=== PATIENT | male | born 1970 | race Caucasian/White ===

== ENCOUNTER 2019-09-10 05:53 | Observation (INO) ==
--- NOTE | 2019-09-08 10:10 | EKG Report ---
Test Performed on : 09/08/2019 10:04:37 AM Test Reason : pat Blood Pressure : / mmHG Vent. Rate : 081 BPM Atrial Rate : 081 BPM P-R Int : 156 ms QRS Dur : 092 ms QT Int : 374 ms P-R-T Axes : 062 066 038 degrees QTc Int : 434 ms Normal sinus rhythm. Normal ECG No previous ECGs available Unconfirmed Result
[2019-09-08 10:18] LABS: HEMATOCRIT 43.8 % (42.0-52.0); HEMOGLOBIN 14.6 g/dL (14.0-18.0); MCH 29.4 PG (27-31); MCHC 33.3 g/dL (33-37); MCV 88.3 FL (81-99); MPV 9.3 FL (7.4-10.4); RBC 4.96 XMIL (4.7-6.1); RDW 13.1 % (11.5-14.5); WBC 7.41 X1000 (4.8-10.8)
[2019-09-08 10:39] LABS: AGAP 15; BUN 8 mg/dL (8-22); CALCIUM 9.9 mg/dL (8.8-10.2); CHLORIDE 100 mmol/L (98-107); COSMO 284; CREATININE 0.9 mg/dL (0.7-1.2); ESTIMATED GFR > 60; GLUCOSE 119 mg/dL (70-104); POTASSIUM 3.6 mmol/L (3.5-5.1); SODIUM 143 mmol/L (136-145); TCO2 28 mmol/L (25-35)
[2019-09-10] MEDS ORDERED: REGLAN ONE (06:16)
[2019-09-10] MEDS ORDERED: PEPCID ONE (06:16)
[2019-09-10] MEDS ORDERED: LR 1,000 ML ONE ×2 (06:17→08:54)
[2019-09-10] MEDS ORDERED: DIPRIVAN 1% ONE (06:54)
[2019-09-10] MEDS ORDERED: SUFENTA ONE (06:58)
[2019-09-10] MEDS ORDERED: NAROPIN 0.2% ONE (07:02)
[2019-09-10] MEDS ORDERED: AFRIN NASAL SPRAY ONE (07:02)
[2019-09-10] MEDS ORDERED: XYLOCAINE 1%/EPI 1:100,000 ONE (07:02)
[2019-09-10] MEDS ORDERED: ZOFRAN ONE (07:09)
[2019-09-10] MEDS ORDERED: ROBINUL ONE (07:57)
[2019-09-10] MEDS ORDERED: TYLENOL LIQUID PO PRN (10:05)
[2019-09-10] MEDS: DECADRON IV SCH ×2 (10:39→18:29)
[2019-09-10] MEDS: OXYCODONE PO PRN ×3 (10:39→21:04)
[2019-09-10] MEDS: LR 1,000 ML IV SCH ×2 (11:56→18:40)
--- NOTE | 2019-09-10 14:10 | OPERATIVE NOTE ---
PROCEDURE DATE: 09/10/2019 PREOPERATIVE DIAGNOSIS: Obstructive sleep apnea. POSTOPERATIVE DIAGNOSIS: Obstructive sleep apnea. PROCEDURE: Tonsillectomy. COMPLICATIONS: None. ANESTHESIA: General with endotracheal intubation. FINDINGS: The right tonsil was smaller than the left tonsil by roughly 50%. Significant tonsil stones noted in the right tonsil. DESCRIPTION OF PROCEDURE: The patient was identified, consented. Options were reviewed. He was brought to the operating room, placed in the supine position, where general anesthesia was induced with endotracheal intubation. McIvor mouth gag was placed. Oropharyngeal visualization was obtained. Indirect nasopharyngeal visualization revealed no adenoid tissues remain after adenoidectomy in the past. The right tonsil was grasped with a curved Allis clamp, and medial traction was applied. Anterior mucosal incision was performed, through which a capsule dissection facilitated removal of the entire tonsil tissue. Attention was paid to hemostasis using electrocautery, as well as removal of entire tonsil tissue and preservation of the anterior and posterior tonsil pillar musculature. Tonsils were sent as separate specimens. Contralateral tonsillectomy was performed in similar fashion. Ropivacaine 0.2% was injected into the tonsil fossa bilaterally. His throat was irrigated and suctioned prior to extubation. He was extubated and transferred to the recovery room in stable condition. He will be monitored in the ICU overnight with CPAP. cc: Aly Mahmood MD
[2019-09-11] MEDS: LR 1,000 ML IV SCH (05:50)
[2019-09-11] MEDS: OXYCODONE PO PRN (06:45)
[2019-09-11 08:54] VITALS: BP 123/75
[2019-09-11] MEDS ORDERED: FLU VACCINE IM ONE (10:07)
== END 2019-09-11 10:15 | disposition home or self-care (01) ==
LOC: OPS 05:53 → PAT 05:53 → 4N 05:53 → 2N 08:51
PROVIDERS: ADMIT Otolaryngology Otolaryngology/Facial Plastic Surgery; ATTEND Otolaryngology Otolaryngology/Facial Plastic Surgery